=== PATIENT | female | born 2005 | race Caucasian/White ===

== ENCOUNTER 2023-11-25 14:28 | Emergency (ER) | payer OTHER, SELFPAY ==
--- NOTE | ~2023-11-25 | XR_ITS ---
EXAMINATION: XR knee LT min 4V DATE: 11/25/2023 17:33 INDICATION: Left knee injury and pain. TECHNIQUE: 5 views of left knee were obtained. COMPARISON: None. FINDINGS: Bone alignment is normal. No fracture. Joint spaces are normal. There is a small knee joint effusion. IMPRESSION: 1. Small knee joint effusion. Reviewed, dictated and finalized at location E.
--- NOTE | 2023-11-25 17:18 | ED.LOWEXIN ---
HPI - Extremity Injury (Lower) General Chief Complaint: Extremity Injury, Lower Stated Complaint: L leg injury Time Seen by Provider: 11/25/23 17:09 History of Present Illness HPI Narrative: 18-year-old female presents to the emergency department with her mother at bedside for left knee pain. Patient states about 3 hours prior to arrival she injured her knee while jumping on the [employer] park. States she went to push off of her knee when she twisted and felt a pop. She is reporting knee pain since that is worse when she extends her knee and bears weight. She took Tylenol prior to arrival. She denies any other injury including hip pain or ankle pain. No prior injuries to this knee. States LMP was 1 week ago, denies possibility of . Related Data Allergies Allergy/AdvReac Type Severity Reaction Status Date / Time No Known Allergies Allergy Verified 11/25/23 14:31 Review of Systems Review of Systems: All systems reviewed & are unremarkable except as noted in HPI and below Exam Narrative: GENERAL: Well-appearing, well-nourished, and in no acute distress. HEAD: Normocephalic, atraumatic. NECK: Supple. CHEST: Clear to auscultation. No respiratory distress. HEART: Regular rate and rhythm. No murmur heard. Normal peripheral pulses. EXTREMITIES: LLE: Diffuse pain to the knee without obvious effusion or edema. Full active range of motion with pain with full extension and flexion. No tenderness remainder of lower extremity. DP pulse 2 +. Sensation intact. Cap refill less than 2. Negative laxity with varus or valgus stress, negative anterior and posterior drawer. SKIN: Warm, dry, no rash. NEURO: No focal deficits. Alert and oriented x3 MDM - Extremity Injury (Lower) MDM Narrative Medical decision making narrative: 18-year-old female presents to emergency department for left knee pain after injury and at the [employer] park. Reporting twisting mechanism. Vital stable. Exam is significant for the above. She is neurovascularly intact. X-ray of the knee shows a small knee joint effusion. Given mechanism of injury I am concerned for ligamentous pathology. Patient was placed in a knee immobilizer and provided crutches and orthopedic follow-up. Encouraged Tylenol ibuprofen for pain I discussed strict ED return precautions. She is agreeable with the plan verbalized understanding. Discharged in stable condition. Discharge Plan Discharge Clinical Impression: Knee pain Qualifiers: Chronicity: acute Laterality: left Qualified Code(s): M25.562 - Pain in left knee Patient Disposition: Home, Self-Care Condition: Stable Instructions: Antibiotic Form, Knee Pain (ED) Additional Instructions: you were evaluated in the emergency department for knee pain after an injury. Your x-ray shows swelling in her knee but no broken bones. Given the mechanism of injury you may have injured a ligament as discussed. Please wear the knee immobilizer and use crutches until you are able to follow-up with the orthopedist I have referred you to. You can take 1000 mg of Tylenol every 6 hours and/or 800 mg of ibuprofen every 6 hours as needed for pain. Rest, ice, elevate your knee. Return to the emergency department if you develop a cold or numb foot, fever, or other concerning symptoms. Follow-up/Referrals: Jamar May MD [Physician] - 1 Day UNKNOWN,DOCTOR [Non-Staff] - Stand Alone Forms: Work/School Release IP
[2023-11-25] MEDS: IBUPROFEN 400 MG TABLET 800 MG PO (17:32)
[2023-11-25 18:43] VITALS: BP 117/69; PULSE 80; RESP 20; O2SAT 100
== END 2023-11-25 18:45 | disposition home or self-care (01) ==
PROVIDERS: Emergency Provider Physician Assistant; PCP Nurse Practitioner Family
DX: S89.92XA Unspecified injury of left lower leg, initial encounter (principal); X50.9XXA Other and unspecified overexertion or strenuous movements or postures, initial encounter; Y93.44 Activity, trampolining
CPT/HCPCS: 73564; 99283; A9270

== ENCOUNTER 2024-01-09 13:02 | Outpatient (CLI) | payer MEDICAID, SELFPAY ==
--- NOTE | ~2024-01-09 | MR_ITS ---
EXAMINATION: MR knee LT wo con DATE: 01/09/2024 13:47 INDICATION: M25.562 - Pain in left knee TECHNIQUE: Magnetic resonance imaging (MRI) of the left knee was performed without intravenous contra st. Sequences included axial PD-weighted FS FSE, coronal PD-weighted FSE and PD-weighted FS FSE, sagi ttal PD-weighted FSE, and sagittal T2-weighted FS FSE. COMPARISON: None. FINDINGS: Medial compartment: Vertically oriented tear of the posterior horn, medial meniscus, and a background of mild degenerativ e meniscal volume loss. Mild diffuse cartilage thinning. Lateral compartment: Mild degenerative changes in the lateral meniscus. Mild diffuse cartilage thinning. Patellofemoral compartment: Cartilage and retinacula intact. Ligaments and tendons: Complete ACL tear. The PCL, MCL, and LCL are intact. Remaining flexor and extensor tendons are intact . Fluid: Moderate volume joint fluid. Osseous/other: Focal marrow T2 hyperintensity in the lateral aspect of the LFC and the posterolateral aspect of the lateral tibial plateau IMPRESSION: Vertical tear of the posterior horn, medial meniscus. Complete ACL tear. Bone marrow contusions the lateral compartment. Moderate volume left knee joint effusion. Reviewed, dictated and finalized at location K.
== END 2024-01-09 13:03 | disposition home or self-care (01) ==
LOC: ANHIMG 13:03
PROVIDERS: PCP Nurse Practitioner Family; Visit Provider Physician Assistant Surgical
DX: M25.462 Effusion, left knee (principal); S83.242A Other tear of medial meniscus, current injury, left knee, initial encounter; S83.512A Sprain of anterior cruciate ligament of left knee, initial encounter; S80.02XA Contusion of left knee, initial encounter; X58.XXXA Exposure to other specified factors, initial encounter
CPT/HCPCS: 73721

== ENCOUNTER 2024-02-20 14:30 | Outpatient (RCR) | payer MEDICAID, OTHER, SELFPAY ==
--- NOTE | 2024-01-25 10:02 | OPREHPOC ---
Outpatient Therapy Plan of Care This is a Multidisciplinary Plan of Care that may contain components documented by all disciplines (PT, OT, and ST.) PT Problem 1 PT Problem #1 Knowledge Deficit PT Goal 1 Goal / Goal Update *indep with HEP * correct gait pattern with assistive device Target Visit 8 PT Problem 2 PT Problem #2 Pain PT Goal 1 Goal / Goal Update 1* LE functional scale, self assessment rating of 60% limitation in activity level 2* pt report standing/walking tolerance of 20 minutes 3* pt report NO awakening from sleeping due to knee pain Target Visit 8 PT Problem 3 PT Problem #3 Impaired Flexibility PT Goal 1 Goal / Goal Update increase active L knee ROM to improve gait and sit /stand transfers: in sitting, active 1* extension 0' 2* flexion 110' Target Visit 8 PT Problem 4 PT Problem #4 Impaired Strength PT Goal 1 Goal / Goal Update increase strength of L LE, to improve gait and mobility skills 1* 2 minute walking test distance of 175' 2* mat exercises x 20 reps 3* sit/stand without use of UE's from 18 seat Target Visit 8
--- NOTE | 2024-01-25 10:02 | PTOPEVAL1 ---
Assessment and note entered by Gloria Staton PT Evaluation Information Assessment Status Evaluation ICD-10 Condition Codes (PT) Pain in left knee M25.562,Difficulty Walking R26.2 ,R26.9,Weakness R53.1 Other ICD-10 Condition Codes ( SP3.522A= sprain L ACL;S83.242A= tear med meniscus PT) Onset Nov 25, 2023 Subjective Information injured knee at [facility]; have been to ortho dr- referred to [facility] but not have appt there yet; have been using crutches and knee immobilizer; at last appt, 2 weeks ago- stop using immobilizer but still using crutches all time; had MRI- complete anterior cruciate ligament tear and meniscal damage delay in care due to insurance issues; Activity: 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; have not been doing too much due to knee pain- mostly bed bound cannot stand or be on feet very long; have started doing some exercises sitting bend/ straighten knee; have 4 stairs to enter home, do OK with crutches into her home; Reported Pain Level Pain Score Self Report Additional Pain Score Comments pain range in the past week 6-8/10; front and back of knee 360' pain around knee increase pain: standing/activity in home less than 5 minutes; use chair in shower decrease pain: sit/rest, lie down and prop up leg, ice, ibuprofen 800 mg was on hydrocodone but dr changed to ibuprofen 3x/ day sleeping with pillow between knees and awaken 2x/ wk due to knee pain Assessment PT Clinical Summary Ayde has the diagnosis of L knee pain, ACL tear and meniscus injury per MRI. Onset with injury at [facility]. Self assessment LE functional scale of 78% limiation in activity level. 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 With the evaluation: using crutches with decreased WB on L LE--orders for WBAT; active knee ROM in sitting is (-30') to 95' and supine knee extension (-15'); 2 minute walking test distance of 75' with crutches and decrease strength of L hip, knee and ankle. Skilled PT services are indicated for modalities to decrease pain, therapeutic exercises to increase L LE strength and knee ROM with education for HEP and gait training, progression as tolerated. Plan of Care Interventions Electrical Stimulation,Hot Pack/Cold Pack,Manual Therapy,Neuro Re-education,Patient/Caregiver Education,Therapeutic Activities,Therapeutic Exercise,Ultrasound,Other Other Interventions taping PT Services Indicated Yes Treatment Frequency and 2x/wk for 8 visits Duration These treatments will address the objective and functional deficits as defined above. The patient will be advanced safely and appropriately in order for the patient to progress towards his/her prior level of function. Additional exercises will be introduced and as well as a comprehensive home exercise program upon discharge, if needed, ?to ensure carryover of functional gains achieved in the clinic. This treatment plan has been reviewed and agreement upon by the patient.
--- NOTE | 2024-02-20 14:58 | PTOPDC ---
Assessment and note entered by Gloria Staton, PT Discharge Report Assessment Status Discharge ICD-10 Condition Codes (PT) Pain in left knee M25.562,Difficulty Walking R26.2 ,R26.9,Weakness R53.1 Other ICD-10 Condition Codes ( SP3.522A= sprain L ACL;S83.242A= tear med meniscus PT) Onset Nov 25, 2023 Subjective Information knee is doing better, surgery scheduled for next week; have been doing the exercises; using the compression knee brace when up; no longer using the crutches any more; have alot more mobility; Reported Pain Level Pain Score Self Report Additional Pain Score Comments pain range in the past week 4-10/23; increase pain: walk/standing over 10-15 minutes able to sleep through the night without pain awakening; decrease pain: ice, over the counter meds; sit/ rest Assessment PT Clinical Summary yAde has received 8 PT sessions. Compared to the initial evaluation: pain from 6-8/ 10 to 4-7/10; increase activity level from 5 minutes to 10-15 minute tolerance of walking/ standing; is not awakening from sleep due to knee pain; increase L knee active ROM in sitting (-10') to 115' and supine knee extension (-10'); increase strength of L hip and knee; 2 minute walking test distance from 75' with crutches to 325' without assistive device; Education completed for HEP and gait pattern. The goals were partially achieved. Discharge PT services. She is to have knee surgery next week at [facility]. Plan of Care PT Services Indicated No
== END 2024-02-21 11:33 | disposition home or self-care (01) ==
LOC: ANHPT 14:30
PROVIDERS: PCP Nurse Practitioner Family; Visit Provider Orthopaedic Surgery
DX: S83.242A Other tear of medial meniscus, current injury, left knee, initial encounter (principal); S83.522A Sprain of posterior cruciate ligament of left knee, initial encounter
CPT/HCPCS: 97014; 97110; 97116; 97161; 97530; G0283

== ENCOUNTER 2024-05-26 10:15 | Outpatient (RCR) | payer OTHER, SELFPAY ==
--- NOTE | 2024-02-29 14:58 | OPREHPOC ---
Outpatient Therapy Plan of Care This is a Multidisciplinary Plan of Care that may contain components documented by all disciplines (PT, OT, and ST.) PT Problem 1 PT Problem #1 Knowledge Deficit PT Goal 1 Goal / Goal Update [place] with HEP Target Visit 4 PT Goal 2 Goal / Goal Update Pain will consistently b no greater than 4/10 for 2 consecutive weeks Target Visit 8 PT Problem 2 PT Problem #2 Impaired Range of Motion PT Goal 1 Goal / Goal Update Patient will achieve 125 degrees of left knee flexion ROM Target Visit 10 PT Problem 3 PT Problem #3 Impaired Strength PT Goal 1 Goal / Goal Update 1. Improve Left knee extension strength to 5/5 to improve quad stabilization for walking and stair navigation 2. Improve Left knee flexion strength to 5/5 to improve force coupling strength of hamstrings for knee stability 3. Improve stacy hip abduction strength to 4+/5 to improve lateral knee and pelvic stability with walking and ADLs Target Visit 10 PT Goal 2 Goal / Goal Update Patient will ambulate independent of AD Target Visit 6 PT Problem 4 PT Problem #4 Impaired Functional Mobil PT Goal 1 Goal / Goal Update Patient will improve LEFS score to 20%> disability index for improved functional performance of affected knee Target Visit 10
--- NOTE | 2024-02-29 14:59 | PTOPEVAL1 ---
Assessment and note entered by Zion Thompson, PT Evaluation Information Assessment Status Evaluation Diagnosis Tear of Meniscus and ACL S83.207A ICD-10 Condition Codes (PT) Pain in left knee M25.562 Onset 02/26/24 Subjective Information Reports that she is currently having a lot of pain . She feels pressure and swelling in the knee and feels very tight. Is unsure of her protocol and whether or not she is able to walk at this moment. No pain into the foot at this time. She is a little hesitant for flexion motion. Reported Pain Level Pain Score 9: Self Report Assessment PT Clinical Summary Patient presents to therapy with signs and symptoms consistent with ACL repair. Dressings in place and brace locked to terminal extension. Patient underwent BEAR procedure and will be progressed per protocol into knee functional motion, strength, and independence. Patient will benefit from skilled therapy to address functional and objective deficits as listed for age appropriate return to activity. Plan of Care Interventions Electrical Stimulation,Gait Training,Hot Pack/Cold Pack,Manual Therapy,Neuro Re-education, Therapeutic Activities,Therapeutic Exercise PT Services Indicated Yes Treatment Frequency and 2x/week for 10 visits Duration These treatments will address the objective and functional deficits as defined above. The patient will be advanced safely and appropriately in order for the patient to progress towards his/her prior level of function. Additional exercises will be introduced and as well as a comprehensive home exercise program upon discharge, if needed, ?to ensure carryover of functional gains achieved in the clinic. This treatment plan has been reviewed and agreement upon by the patient.
--- NOTE | 2024-03-31 10:05 | OPREHPOC ---
Outpatient Therapy Plan of Care This is a Multidisciplinary Plan of Care that may contain components documented by all disciplines (PT, OT, and ST.) PT Problem 1 PT Problem #1 Knowledge Deficit PT Goal 1 Goal / Goal Update [place] with HEP Target Visit 4 Progress Met PT Goal 2 Goal / Goal Update Pain will consistently b no greater than 4/10 for 2 consecutive weeks -Lowered but not yet consistent Target Visit 18 Progress Partially Met PT Problem 2 PT Problem #2 Impaired Range of Motion PT Goal 1 Goal / Goal Update Patient will achieve 125 degrees of left knee flexion ROM -Improve to 115 Target Visit 18 Progress Partially Met PT Problem 3 PT Problem #3 Impaired Strength PT Goal 1 Goal / Goal Update 1. Improve Left knee extension strength to 5/5 to improve quad stabilization for walking and stair navigation -Progress but still lacking 2. Improve Left knee flexion strength to 5/5 to improve force coupling strength of hamstrings for knee stability -Progress but still lacking 3. Improve stacy hip abduction strength to 4+/5 to improve lateral knee and pelvic stability with walking and ADLs -Progress but still lacking Target Visit 18 Progress Partially Met PT Goal 2 Goal / Goal Update Patient will ambulate independent of AD -Reduced to single crutch Target Visit 6 Progress Partially Met PT Problem 4 PT Problem #4 Impaired Functional Mobility PT Goal 1 Goal / Goal Update Patient will improve LEFS score to 20%> disability index for improved functional performance of affected knee Target Visit 10 Progress Met
--- NOTE | 2024-03-31 10:05 | PTOPPROG ---
Assessment and note entered by Zion Thompson, PT Evaluation Information Assessment Status Progress Diagnosis Tear of Meniscus and ACL S83.207A ICD-10 Condition Codes (PT) Pain in left knee M25.562 Onset 02/26/24 Subjective Information Reports that overall she is feeling better. She has had some pain with gait training but it is improved today. She has not attempted stairs at this point but would like to as she has some to get into her home. She has been having some trouble with her brace falling down. Assessment PT Clinical Summary Patient is making exceptional progress per protocol with knee control. She is still apprehensive with gait so we have chosen to remain on crutch and focus on this moving forward for a couple more weeks. Demonstrates proficiency with step to on stairs. Will continue to benefit from skilled therapy to address deficits and promote return to independent function. Plan of Care Interventions Electrical Stimulation,Gait Training,Hot Pack/Cold Pack,Manual Therapy,Neuro Re-education, Therapeutic Activities,Therapeutic Exercise PT Services Indicated Yes Treatment Frequency and 1-2x/week for 8 visits Duration These treatments will address the objective and functional deficits as defined above. The patient will be advanced safely and appropriately in order for the patient to progress towards his/her prior level of function. Additional exercises will be introduced and as well as a comprehensive home exercise program upon discharge, if needed, ?to ensure carryover of functional gains achieved in the clinic. This treatment plan has been reviewed and agreement upon by the patient.
--- NOTE | 2024-05-05 12:00 | PTOPPROG ---
Assessment and note entered by Zion Thompson, PT Evaluation Information Assessment Status Progress Diagnosis Tear of Meniscus and ACL S83.207A ICD-10 Condition Codes (PT) Pain in left knee M25.562 Onset 02/26/24 Subjective Information Reports that overall she feels she is still lacking strength but ROM is doing fairly well. She has been able to do majority of upright activity but still struggles with squatting and lifting activity. She currently is on light duty and has been restricted to lift no more than 10 pounds which she needs to do more for at work. She is having a lot of trouble deep bending to reach things on low shelves and transfer, let alone lift from this position. Continues to feel that her walking is off center and she is deviating in her path. She would like to be clara to return to running as well as she has not been able to do that yet due to pain, apprehension, and weakness. Assessment PT Clinical Summary Patient continue to progress with goals based on protocol for BEAR procedure for ACL repair. Patient at this time is suitable for progression to more dynamic and functional activity including but not limited to initiation of jogging, deep squat training, lifting training, and improved eccentric mechanics of stair navigation and floor squatting for both work and home care related activity. Plan of Care Interventions Electrical Stimulation,Gait Training,Hot Pack/Cold Pack,Manual Therapy,Neuro Re-education, Therapeutic Activities,Therapeutic Exercise PT Services Indicated Yes Treatment Frequency and 1x/week for 6 visits Duration These treatments will address the objective and functional deficits as defined above. The patient will be advanced safely and appropriately in order for the patient to progress towards his/her prior level of function. Additional exercises will be introduced and as well as a comprehensive home exercise program upon discharge, if needed, ?to ensure carryover of functional gains achieved in the clinic. This treatment plan has been reviewed and agreement upon by the patient.
--- NOTE | 2024-05-05 12:01 | OPREHPOC ---
Outpatient Therapy Plan of Care This is a Multidisciplinary Plan of Care that may contain components documented by all disciplines (PT, OT, and ST.) PT Problem 1 PT Problem #1 Knowledge Deficit PT Goal 1 Goal / Goal Update [place] with HEP Target Visit 4 Progress Met PT Goal 2 Goal / Goal Update Pain will consistently b no greater than 4/10 for 2 consecutive weeks Target Visit 18 Progress Met PT Problem 2 PT Problem #2 Impaired Range of Motion PT Goal 1 Goal / Goal Update Patient will achieve 125 degrees of left knee flexion ROM Target Visit 18 Progress Met PT Problem 3 PT Problem #3 Impaired Strength PT Goal 1 Goal / Goal Update 1. Improve Left knee extension strength to 5/5 to improve quad stabilization for walking and stair navigation 2. Improve Left knee flexion strength to 5/5 to improve force coupling strength of hamstrings for knee stability 3. Improve stacy hip abduction strength to 4+/5 to improve lateral knee and pelvic stability with walking and ADLs -Progress but still lacking Target Visit 26 Progress Partially Met PT Goal 2 Goal / Goal Update Patient will ambulate independent of AD -Reduced to single crutch Target Visit 6 Progress Met PT Problem 4 PT Problem #4 Impaired Functional Mobility PT Goal 1 Goal / Goal Update Patient will improve LEFS score to 20%> disability index for improved functional performance of affected knee Target Visit 10 Progress Met PT Problem 5 PT Problem #5 Impaired Functional Mobility PT Goal 1 Goal / Goal Update 1. Patient will demonstrate ability to perform straight line jog for 2 minutes with proper mechanics per protocol 2. Patent will demonstrate ability to perform 20# box lift with proper squatting mechanics for functional return to work ability Target Visit 26
== END 2024-05-29 23:59 | disposition home or self-care (01) ==
LOC: ANHPT 10:15
PROVIDERS: PCP Nurse Practitioner Family; Visit Provider Orthopaedic Surgery Sports Medicine
DX: S83.207A Unspecified tear of unspecified meniscus, current injury, left knee, initial encounter (principal); M25.562 Pain in left knee
CPT/HCPCS: 97014; 97110; 97112; 97116; 97140; 97161; 97530; G0283

== ENCOUNTER 2024-06-24 09:00 | Outpatient (RCR) | payer OTHER, SELFPAY ==
--- NOTE | 2024-06-24 09:59 | OPREHPOC ---
Outpatient Therapy Plan of Care This is a Multidisciplinary Plan of Care that may contain components documented by all disciplines (PT, OT, and ST.) PT Problem 1 PT Problem #1 Knowledge Deficit PT Goal 1 Goal / Goal Update [place] with HEP Target Visit 4 Progress Met PT Goal 2 Goal / Goal Update Pain will consistently b no greater than 4/10 for 2 consecutive weeks Target Visit 18 Progress Met PT Problem 2 PT Problem #2 Impaired Range of Motion PT Goal 1 Goal / Goal Update Patient will achieve 125 degrees of left knee flexion ROM Target Visit 18 Progress Met PT Problem 3 PT Problem #3 Impaired Strength PT Goal 1 Goal / Goal Update 1. Improve Left knee extension strength to 5/5 to improve quad stabilization for walking and stair navigation 2. Improve Left knee flexion strength to 5/5 to improve force coupling strength of hamstrings for knee stability 3. Improve stacy hip abduction strength to 4+/5 to improve lateral knee and pelvic stability with walking and ADLs -Progress but still lacking Target Visit 26 Progress Met PT Goal 2 Goal / Goal Update Patient will ambulate independent of AD -Reduced to single crutch Target Visit 6 Progress Met PT Problem 4 PT Problem #4 Impaired Functional Mobility PT Goal 1 Goal / Goal Update Patient will improve LEFS score to 20%> disability index for improved functional performance of affected knee Target Visit 10 Progress Met PT Problem 5 PT Problem #5 Impaired Functional Mobility PT Goal 1 Goal / Goal Update 1. Patient will demonstrate ability to perform straight line jog for 2 minutes with proper mechanics per protocol 2. Patent will demonstrate ability to perform 20# box lift with proper squatting mechanics for functional return to work ability Target Visit 26 Progress Met
--- NOTE | 2024-06-24 09:59 | PTOPDC ---
Assessment and note entered by Zion Thompson, PT Evaluation Information Assessment Status Discharge Diagnosis Tear of Meniscus and ACL S83.207A ICD-10 Condition Codes (PT) Pain in left knee M25.562 Onset 02/26/24 Subjective Information Reports that overall she is doing much better. Returning to work in the next couple of weeks. No concerns at this time for continued HEP. Reported Pain Level Pain Score 0: Self Report Assessment PT Clinical Summary Patient has met all personal goals and objective goals at this time. Demonstrates understanding of fdc exercise plan and is suitable for discharge from skilled therapy this date. Plan of Care PT Services Indicated Yes
== END 2024-06-25 09:48 | disposition home or self-care (01) ==
LOC: ANHGOSHPT 09:00
PROVIDERS: PCP Nurse Practitioner Family; Visit Provider Orthopaedic Surgery Sports Medicine
DX: S83.207A Unspecified tear of unspecified meniscus, current injury, left knee, initial encounter (principal); M25.562 Pain in left knee
CPT/HCPCS: 97110; 97116; 97140; 97530

== ENCOUNTER 2024-09-26 12:22 | Emergency (ER) | payer OTHER, SELFPAY ==
[2024-09-26 12:23] VITALS: BP 141/86; PULSE 92; RESP 16; TEMP 36.9; O2SAT 99
--- OUTSIDE RECORDS SUMMARY | 2024-09-26 12:24 | XMS_ITS | Clinical Summary ---
Author Organization [facility] Address [address] [place] [address] Phone Care Team Providers Care Key Filer Name Role Phone Rosemary Holt APRN SECRETARY BOOKKEEPER Primary Care Provider [phone] Social History Tobacco Use Types Packs/Day Years Used Date Smoking Tobacco: Never Assessed Comments Unknown Sex and Gender Information Value Date Recorded Sex Assigned at Not on file Legal Sex Female 10:15 PM CDT Gender Identity Not on file Sexual Orientation Not on file Last Filed Vital Signs Vital Sign Reading Time Taken Comments Blood Pressure 137/72 12/22/2022 4:11 PM CDT Pulse 76 12/22/2022 4:11 PM CDT Temperature - - Respiratory Rate 16 12/22/2022 4:11 PM CDT Oxygen Saturation 98% 12/22/2022 4:11 PM CDT Inhaled Oxygen Concentration - - Weight - - Height - - Body Mass Index - - Plan of Treatment Not on file Insurance [facility] Care Teams Key Filer Relationship Specialty Start Date End Date Rosemary Holt APRN, RAMIR[address] [place] [id number] PCP - General Family Medicine 12/22/22
--- OUTSIDE RECORDS SUMMARY | 2024-09-26 12:24 | XMS_ITS | Referral Summary ---
Author Organization [facility] Address [address] [place] [address] Care Team Providers Care Property Economist Name Role Phone Vicente Agustin MD Primary Care Provider Allergies No known active allergies Medications traMADol-aceta minophen (ULTRACET) 37.5-325 mg per tablet Take 1 tablet by mouth every 6 (six) hours as needed for pain P.r.n. pain not relieved by naproxen alone. Take with food. Collaborating physician Vinny Orlando MD 15 tablet 3 Active naproxen (NAPROSYN) 500 mg tablet Take 1 tablet (500 mg total) by mouth 2 (two) times a day with meals P.r.n. pain. Collaborating physician Vinny Orlando MD 30 tablet 3 Active tiZANidine (ZANAFLEX) 4 mg tablet Take 1 tablet (4 mg total) by mouth every 6 (six) hours as needed (Take as directed to relax muscles) Collaborating physician Vinny Orlando MD 20 tablet 3 Active Active Problems Problem Noted Date Diagnosed Date Lumbar strain, initial encounter 07/26/2022 Social History Tobacco Use Types Packs/Day Years Used Date Smoking Tobacco: Never Assessed Personal Safety Answer Date Recorded Have you ever been in or are you currently in a harmful physical or emotional relationship or is someone making you feel afraid or unsafe? Denies 07/26/2022 Comments No Sex and Gender Information Value Date Recorded Sex Assigned at Not on file Legal Sex Female 7:18 PM RAYON TESTER Gender Identity Not on file Sexual Orientation Not on file Last Filed Vital Signs Vital Sign Reading Time Taken Comments Blood Pressure 135/74 07/26/2022 4:09 PM CDT Pulse 100 07/26/2022 4:09 PM CDT Temperature 37.2 C (98.9 F) 07/26/2022 4:09 PM CDT Respiratory Rate 18 07/26/2022 4:09 PM CDT Oxygen Saturation 99% 07/26/2022 4:09 PM CDT Inhaled Oxygen Concentration - - Weight 90.7 kg (200 lb) 07/26/2022 4:09 PM CDT Height 172.7 cm (5' 8) 07/26/2022 4:09 PM CDT Body Mass Index 30.41 07/26/2022 4:09 PM CDT Plan of Treatment Not on file Insurance [facility] H[facility]PPO Address: [facility] [id number] [place], [place] [id number] Care Teams Property Economist Relationship Specialty Start Date End Date Vicente Agustin MD PCP - General 09/30/16
--- OUTSIDE RECORDS SUMMARY | 2024-09-26 12:24 | XMS_ITS | Clinical Summary ---
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 Gender Identity Not on file Sexual Orientation Not on file Obstetrics History Last Filed Vital Signs Vital Sign Reading [...] 07/26/2022 4:09 PM CDT Plan of Treatment Health Maintenance Due Date Last Done Comments Cervical Cancer Screening 2003 Depression Screening 2003 Hepatitis C Screening 2003 Meningococcal B Vaccine (1 of 2 - Standard) 2019 Regular Well Visit/Exam 18-64 2021 DTaP/Tdap/Td Vaccine (7 - Td or Tdap) 04/15/2023 04/15/2013, 06/17/2008, 08/03/2004, Additional history exists Covid-19 Vaccine ( season) 2023 10/26/2020, 10/05/2020 Influenza Vaccine (Season Ended) 2024 05/30/2022, 04/23/2015, 02/23/2014, Additional history exists Hepatitis B Screening Completed 2003 , 2003, 2003, Additional history exists Pneumococcal vaccine <65 Completed 005, 04/28/2004, 2003, Additional history exists Varicella Vaccines Completed 06/17/2008, 04/28/2004 Meningococcal Vaccine Aged Out 04/23/2014 No adilia [place] eligible based on patient's age to complete this topic HPV Vaccines Completed 04/23/2015, 12/2014, 10/21/2014 Insurance [id number] CHOICE PLUS Care Teams Extension Work Instructor Relationship Specialty Start Date End Date Vicente Agustin MD PCP - General 09/30/16
--- NOTE | 2024-09-26 13:22 | ED_ITS ---
[facility] - General Adult General Chief complaint: Unspecified Stated complaint: Sore Throat with Swelling Time Seen by Provider: 09/26/24 12:54 History of Present Illness HPI narrative: 19-year-old female presenting with a sore throat that she noticed last night and this morning. She states she went to urgent care who is referring her to the hospital for evaluation. They noticed that she was having some erythema and redness on her left tonsil. Patient has no history of strep throat but states that recently she had 3 weeks of an upper respiratory infection that she has felt was odd. No neck swelling or neck stiffness. No fever chills. No cough presently. Patient denies any trauma or injury. No history of any tonsillar surgeries. Related Data Allergies Allergy/AdvReac Type Severity Reaction Status Date / Time No Known Allergies Allergy Verified 09/26/24 12:25 Review of Systems Review of Systems: As reviewed above in [facility] Social History Social History Smoking status: Never smoker Second hand tobacco smoke exposure: Yes Alcohol intake: never Substance use: never Substance use type: does not use Do You Feel Safe in your Home?: Yes Lack of Transportation: No Lack of Food: Sometimes True Current Housing: I Have Housing Concerned About Future Housing: No Difficulty Paying Gas/Electric Bills: No Difficulty Paying for Meds: No Currently Unemployed: Decline to Answer Education: High School Diploma/GED Difficulty w/ Childcare or Family Care: No Living arrangements: with family Occupation/Education: occupation Additional occupation/education comments: [employer] Gender identity (if verbalized by the patient): Female Exam Narrative: GENERAL: [Well-appearing, well-nourished, and in no acute distress.] HEAD: [Normocephalic, atraumatic.] EYES: [PERRLA and EOMI.] ENT: Posterior oropharynx is some erythema, left tonsillar pillars inflamed with some overlying redness and exudates, no significant fluctuant mass appreciated, uvula is midline. No lymphadenopathy in that her neck otherwise. Moist mucous membranes NECK: Supple. CHEST: [Clear to auscultation. No respiratory distress.] HEART: [Regular rate and rhythm]. No murmur heard. [Normal peripheral pulses.] ABDOMEN: [Soft, nondistended], [nontender], [No rigidity or guarding] EXTREMITIES: Normal range of motion. [No edema.] SKIN: Warm, dry, no rash. NEURO: [No focal deficits]. Alert and oriented [x3.] PSYCH: [Normal mood and affect.] Course Vital Signs Vital signs: Vital Signs Temperature 36.9 C 09/26/24 12:23 Pulse Rate 92 09/26/24 12:23 Respiratory Rate 16 09/26/24 12:23 Blood Pressure 141/86 H 09/26/24 12:23 Pulse Oximetry 99 09/26/24 12:23 Temperature 36.9 C 09/26/24 12:23 Pulse Rate 92 09/26/24 12:23 Respiratory Rate 16 09/26/24 12:23 Blood Pressure 141/86 H 09/26/24 12:23 Pulse Oximetry 99 09/26/24 12:23 Medical Decision Making MDM Narrative Medical decision making narrative: 19-year-old female presenting with pharyngitis type symptoms. On examination she has left-sided tonsillar erythema and exudates consistent with potential strep throat versus viral pharyngitis/tonsillitis. Uvula is midline, no increased secretions or phonation changes. She is afebrile. No cough. Patient will be treated with Decadron. Strep swabs negative, Centor criteria is low, no need for antibiotics at this time. Patient will be treated with anti-inflammatories and did receive Decadron shot here. Patient counseled on expected management and return precautions and she will follow-up with regular doctor. Medical Records Medical records reviewed: Yes I reviewed the external patient's medical records. Vital Signs Vital Signs: Vital Signs Temperature 36.9 C 09/26/24 12:23 Pulse Rate 92 09/26/24 12:23 Respiratory Rate 16 09/26/24 12:23 Blood Pressure 141/86 H 09/26/24 12:23 Pulse Oximetry 99 09/26/24 12:23 Temperature 36.9 C 09/26/24 12:23 Pulse Rate 92 09/26/24 12:23 Respiratory Rate 16 09/26/24 12:23 Blood Pressure 141/86 H 09/26/24 12:23 Pulse Oximetry 99 09/26/24 12:23 Lab Data Lab results reviewed: Yes I reviewed the patient's lab results. Labs: Lab Results 09/26/24 Range/Units 13:11 Influenza A (RT-PCR) Pending Influenza B (RT-PCR) Pending RSV (RT-PCR) Pending SARS-CoV-2 RNA (RT-PCR) Pending Group A Strep (PCR) Not detected (Negative) Discharge Plan Discharge Clinical Impression: Tonsillar erythema, Pharyngitis with viral syndrome Patient Disposition: Home Condition: Stable Instructions: Antibiotic Form, Pharyngitis (ED), Tonsillitis (ED) Additional Instructions: You tested negative for strep in your symptoms are likely viral in nature, no need for antibiotics, he received steroids here in the emergency department and we will send you home with anti-inflammatory medications to take. Monitor symptoms for the next several days to weeks for resolution, if no improvement or worsening symptoms return to the ER or follow-up with regular doctor. Patient Language: Trinidadian Prescriptions: New ketorolac 10 mg tablet 10 mg PO Q8H PRN (Reason: pain) 5 Days Qty: 20 0RF Rx Instructions: maximum total duration of 5 days from all oral, intranasal, or parenteral formulations No Action ibuprofen 800 mg tablet 800 mg PO TID Qty: 90 0RF Rx Instructions: Take with food hydrocodone-acetaminophen 7.5-325 mg tablet 1 tablet PO Q4H PRN (Reason: pain) Qty: 40 0RF Follow-up/Referrals: Jonathon,Rosemary Escalona APN [Primary Care Provider] - Time of Disposition: 13:58
[2024-09-26] MEDS: dexAMETHasone SOD PHOS INJ 10 MG/ML 1 ML VIAL IM (13:31)
--- OUTSIDE RECORDS SUMMARY | 2024-09-26 13:39 | XMS_ITS | Clinical Summary ---
Author Organization [facility] Address [address] [place] [address] Phone Care Team Providers Care Rewards Consultant Name Role Phone Rosemary Holt APRN DEWATERER OPERATOR Primary Care Provider [phone] Social History Tobacco Use Types Packs/Day Years [...] Plan of Treatment Not on file Insurance [facility] Care Teams Rewards Consultant Relationship Specialty Start Date End Date Rosemary Holt APRN, RAMIR[address] [place] [id number] PCP - General Family Medicine 12/22/22
--- OUTSIDE RECORDS SUMMARY | 2024-09-26 13:39 | XMS_ITS | Referral Summary ---
Author Organization [facility] Address [address] [place] [address] Care Team Providers Care Regional Engineer Name Role Phone Vicente Agustin MD Primary [...] on file Legal Sex Female 7:18 PM BILLET STRAIGHTENER Gender Identity Not on file Sexual Orientation [...] Treatment Not on file Insurance [facility] H[facility]/PPO Address: [facility] [id number] [place], [place] [id number] Care Teams Regional Engineer Relationship Specialty Start Date End Date Vicente Agustin MD PCP - General 09/30/16
--- OUTSIDE RECORDS SUMMARY | 2024-09-26 13:39 | XMS_ITS | Clinical Summary ---
Author Organization [facility] Address [address] [place] [address] Care Team Providers Care Fire Technology Instructor Name Role Phone Vicente Agustin MD [...] on file Legal Sex Female 7:18 PM MACHINE INKER Gender Identity Not on file Sexual Orientation [...] HPV Vaccines Completed 04/23/2015, 12/2014, 10/21/2014 Insurance [id number] CHOICE PLUS Care Teams Fire Technology Instructor Relationship Specialty Start Date End Date Vicente Agustin MD PCP - General 09/30/16
[2024-09-26 13:45] LABS: Strep Group A RT-PCR NOT DETECTED (Negative)
[2024-09-26 13:57] LABS: Influenza A QL RT-PCR Negative (Negative); Influenza B QL RT-PCR Negative (Negative); RSV RNA, RT-PCR Negative (Negative); SARS-CoV-2 RNA PCR Negative (Negative)
[2024-09-26] MEDS: AMOXICILLIN 500 MG CAPSULE PO (14:06)
== END 2024-09-26 14:09 | disposition home or self-care (01) ==
PROVIDERS: Emergency Provider Student in an Organized Health Care Education/Training Program; PCP Nurse Practitioner Family
DX: B34.9 Viral infection, unspecified (principal); J02.9 Acute pharyngitis, unspecified; Z20.822 Contact with and (suspected) exposure to COVID-19; Z77.22 Contact with and (suspected) exposure to environmental tobacco smoke (acute) (chronic)
CPT/HCPCS: 87637; 87651; 96372; 99283; A9270; J1100